=== PATIENT | female | born 1950 | race Two or more races ===

== ENCOUNTER 2017-02-19 21:16 | Inpatient (IN) | payer MEDICARE, MEDICAID ==
[~2017-02-19] VITALS: Ht 160 cm; Wt 43.1 kg
[2017-02-20] MEDS ORDERED: ATOR80TA PO (00:58)
[2017-02-20] MEDS ORDERED: DOCU100C36 PO (00:58)
[2017-02-20] MEDS ORDERED: ASPI-1169 PO (00:58)
[2017-02-20] MEDS ORDERED: MIRT15TA7 PO (00:58)
[2017-02-20 02:08] VITALS: BP 151/79
--- NOTE | 2017-02-20 02:10 | NUR ---
PAGED DR. ANDRADE FOR MED RECON. WILL ENDORSE TO NEXT SHIFT NURSE FOR FOLLOW UP.
--- NOTE | 2017-02-20 02:26 | NUR ---
ADMISSION NOTES: ADMITTED THIS 66Y/O FEMALE. PT IS ON 5150 HOLD FOR DTO, GD. DIRECT ADMIT FROM [facility]. PER HOLD PT IS BECOMING INCREASINGLY FORGETFUL AND AGITATED AT HOME. HER DAUGHTER CANNOT MANAGE HER AT HOME. UPON FACE TO FACE, PATIENT WAS AGITATED, COMBATIVE, CONFUSED, UNCOOPERATIVE. PT IS ALERT, ORIENTED X1. V/S WNL. RESPIRATION EVEN NON-LABORED, NO SOB, DENIES PAIN/DISCOMFORT AT THIS TIME. PATIENT IS AMBULATORY WITH ASSIST, UNSTEADY GAIT. BELONGINGS WERE INVENTORIED AND CHECKED FOR CONTRABAND. MRSA DONE. SKIN/BODY ASSESSMENT DONE. SKIN CLEAR AND INTACT. PATIENT IS UNDER THE CARE OF PSYCHIATRIC DR. BURNHAM AND UNDER THE MEDICAL CARE OF DR. LIAO. PSYCH DX OF PSYCHOSIS MEDICAL DX OF HTN, DEMENTIA, HEMIPARESIS RIGHT, BILATERAL HEARING/VISUAL LOSS. BED LOCKED AND PLACED ON LOWEST POSITION. SIDERAILS UPX2. CALL LIGHT WITHIN REACH. ALL NEEDS ATTENDED AND ANTICIPATED. WILL CONTINUE TO MONITOR Q 15 MINS. FOR SAFETY AND BEHAVIOR.
[2017-02-20] MEDS ORDERED: TEMAZEPAM 7.5 MG CAPSULE PO PRN (02:30)
[2017-02-20] MEDS ORDERED: MAG HYDROX/AL HYDROX/SIMETH 30 ML UDC PO PRN (02:30)
[2017-02-20] MEDS ORDERED: MAGNESIUM HYDROXIDE 30 ML UDC PO PRN (02:30)
[2017-02-20] MEDS ORDERED: LORAZEPAM 0.5 MG TABLET PO PRN (02:30)
[2017-02-20] MEDS ORDERED: ACETAMINOPHEN 325 MG TABLET PO PRN (02:30)
[2017-02-20 08:00] VITALS: BP 135/95
[2017-02-20] MEDS: DOCUSATE SODIUM 100 MG CAPSULE PO SCH ×2 (10:30→13:44)
[2017-02-20] MEDS: ASPIRIN 81 MG TAB.CHEW PO SCH ×2 (10:30→13:44)
[2017-02-20] MEDS: Z GUARD REMEDY 2 OZ OINT TP SCH (11:06)
[2017-02-20 16:20] VITALS: BP 128/58
[2017-02-20] MEDS: GABAPENTIN 100 MG CAPSULE PO SCH (17:58)
[2017-02-20] MEDS: busPIRone 5 MG TABLET PO SCH (17:58)
[2017-02-20 19:43] VITALS: BP 99/62
[2017-02-21] MEDS: GABAPENTIN 100 MG CAPSULE PO SCH ×2 (08:22→16:22)
[2017-02-21] MEDS: busPIRone 5 MG TABLET PO SCH ×2 (08:22→16:22)
[2017-02-21] MEDS: DOCUSATE SODIUM 100 MG CAPSULE PO SCH (08:22)
[2017-02-21] MEDS: ASPIRIN 81 MG TAB.CHEW PO SCH (08:22)
[2017-02-21] MEDS: Z GUARD REMEDY 2 OZ OINT TP SCH (08:22)
[2017-02-21 09:11] LABS: BASOPHILS % (AUTO) 0.6 % (0.0-2.0); EOSINOPHILS # (AUTO) 0.1 /CMM (0.0-0.7); EOSINOPHILS % (AUTO) 2.1 % (0.0-6.0); HEMATOCRIT 34 % (33-45); HEMOGLOBIN 11.8 g/dL (11.5-14.8); LYMPHOCYTES # (AUTO) 2.2 /CMM (0.8-4.8); LYMPHOCYTES % (AUTO) 42.4 % (20.0-44.0); MEAN CORPUSCULAR HEMOGLOBIN 30 PG (26.0-33.0); MEAN CORPUSCULAR HGB CONC 35 g/dl (31.0-36.0); MEAN CORPUSCULAR VOLUME 85 fL (82-100); MONOCYTES # (AUTO) 0.2 /CMM (0.1-1.30); MONOCYTES % (AUTO) 4.5 % (2.0-12.0); NEUTROPHILS # (AUTO) 2.6 /CMM (1.8-8.9); NEUTROPHILS % (AUTO) 50.4 % (43.0-81.0); PLATELET COUNT (AUTO) 323 /CMM (150-450); RDW COEFFICIENT OF VARIATION 13.6 (11.5-15.0); WHITE BLOOD COUNT (AUTO) 5.1 K/uL (4.3-11.0)
[2017-02-21 09:31] LABS: ALBUMIN 3.2 g/dL (3.4-5.0); BILIRUBIN,TOTAL 0.8 mg/dL (0.2-1.0); CALCIUM, SERUM 8.9 mg/dL (8.5-10.1); CREATININE 0.8 mg/dL (0.6-1.3); MAGNESIUM 1.9 mg/dL (1.8-2.4); PHOSPHORUS 3.4 mg/dL (2.5-4.9); POTASSIUM 3.3 mmol/L (3.5-5.1); TOTAL PROTEIN, SERUM 6.9 g/dL (6.4-8.2)
[2017-02-21 09:34] LABS: CHOLESTEROL 255 mg/dL (<200); HDL CHOLESTEROL 53 mg/dL (40-60); LDL 182 mg/dL (0-99); TRIGLYCERIDES 120 mg/dL (30-150)
[2017-02-21 09:35] VITALS: BP 121/68
[2017-02-21] MEDS ORDERED: POTASSIUM CHLORIDE 20 MEQ TAB.PRT.SR PO ONE (12:00)
[2017-02-21 16:00] VITALS: BP 155/91
[2017-02-21] MEDS: LACTOSE-FREE FOOD 237 ML LIQUID PO SCH (16:34)
[2017-02-21 19:42] VITALS: BP 127/79
[2017-02-21] MEDS: ATORVASTATIN 40 MG TABLET PO SCH (21:38)
[2017-02-22 08:00] VITALS: BP 146/76
[2017-02-22] MEDS: LACTOSE-FREE FOOD 237 ML LIQUID PO SCH ×2 (08:02→16:22)
[2017-02-22] MEDS: GABAPENTIN 100 MG CAPSULE PO SCH ×3 (09:16→16:06)
[2017-02-22] MEDS: busPIRone 5 MG TABLET PO SCH ×3 (09:16→16:06)
[2017-02-22] MEDS: ASPIRIN 81 MG TAB.CHEW PO SCH (09:16)
[2017-02-22] MEDS: DOCUSATE SODIUM 100 MG CAPSULE PO SCH (09:16)
[2017-02-22] MEDS: Z GUARD REMEDY 2 OZ OINT TP SCH (09:32)
--- NOTE | 2017-02-22 11:56 | NUR ---
Initial Discharge Note: Patient lives with daughter at [address] [place] [address] / [phone]. SW spoke with patient's daughter, Maria M Howell, , who stated that the family has been in contact with [facility] while patient was at [facility]. Maria M stated that they would like patient placed at [facility]. SW to follow up with admissions at [facility] [address], [place] [address] / fax number [phone]. SW will fax inquiry to facility. SW to follow up with MD and will facilitate safe and proper discharge.
[2017-02-22 16:24] VITALS: BP 126/72
[2017-02-22] MEDS ORDERED: POTASSIUM CHLORIDE 20 MEQ TAB.PRT.SR PO ONE (19:00)
[2017-02-22 20:13] VITALS: BP 160/77
[2017-02-22 20:44] VITALS: BP 146/85
[2017-02-22] MEDS: ATORVASTATIN 40 MG TABLET PO SCH (21:13)
[2017-02-23 08:00] VITALS: BP 136/64
[2017-02-23] MEDS: DOCUSATE SODIUM 100 MG CAPSULE PO SCH (08:19)
[2017-02-23] MEDS: ASPIRIN 81 MG TAB.CHEW PO SCH (08:19)
[2017-02-23] MEDS: busPIRone 5 MG TABLET PO SCH ×3 (08:19→16:05)
[2017-02-23] MEDS: GABAPENTIN 100 MG CAPSULE PO SCH ×3 (08:19→16:05)
[2017-02-23] MEDS: LACTOSE-FREE FOOD 237 ML LIQUID PO SCH ×2 (08:19→16:05)
[2017-02-23] MEDS: Z GUARD REMEDY 2 OZ OINT TP SCH (08:21)
--- NOTE | 2017-02-23 10:04 | NUR ---
Discharge Planning: MELISSA faxed an inquiry to Lizzy at [facility] [address], [place] [address] / fax number [phone]. Lizzy then stated that patient was accepted into the facility, as the facility has been working with family since patient was at [facility] [before being transferred to [facility]].
--- NOTE | 2017-02-23 13:03 | NUR ---
Discharge Planning: MELISSA called and left a voicemail for patient's daughter Maria M Howell, . MELISSA informed Maria M that patient was accepted to [facility] and that she was ready to discharge tomorrow. MELISSA provided her direct contact information, as well as MELISSA Garcia's information as MELISSA Souza will be out of office tomorrow.
--- NOTE | 2017-02-23 13:23 | NUR ---
Discharge Note: Patient will be discharged to [facility] [address], [place] [address] / fax number [phone], via transportation arranged by [facility]. The transportation is scheduled for 3pm on , 02/24/17. MELISSA left a voicemail for patients daughter Maria M Howell, informing her of the discharge. [facility] was the family's wish for placement when patient was at [facility] and the family also expressed this wish to MELISSA Souza when she called Maria M after assessing the patient. Patient was also aware and in agreement with this placement. At the facility, patient will be seen by change lead, Dr. [place] [address] [phone]. Patient will also be under the care of psychiatrist, Dr. Ken [address], [place] [address] [phone]. Addendum: 02/23/17 at 1329 by NISSA TORRES MELISSA received a call back from patient's daughter Maria M Howell, . Maria M stated that she was happy with the discharge and thanked
[2017-02-23 15:50] VITALS: BP 118/72
--- NOTE | 2017-02-23 19:30 | NUR ---
GPS RN NOTE, RECEIVED PATIENT AWAKE AND IN BED, NO S/S OR COMPLAINTS OF PAIN AT THIS TIME. PATIENT DISPLAYING NO S/S OF APPARENT DISTRESS AT THIS TIME. PATIENT BREATHING IS UNLABORED WITH EQUAL RISE AND FALL OF THE CHEST. PATIENT IS ALERT AND ORIENTED X 2 ON ROOM AIR WITH A SPO2 97 %. PATIENT IS MED COMPLIANT, CALM, COOPERATIVE, ISOLATIVE, AND NEEDS REORIENTATION AT TIMES. PATIENT DENIES SI AND HI AT THIS TIME. PATIENT ASSISTED WITH TURNING AND REPOSITIONING Q2HR AND PRN FOR COMFORT AND CIRCULATION. PATIENT HAS NO NEEDS AT THIS TIME. PATIENT EDUCATED ON THE USE OF THE CALL JUDD. PATIENT BED SIDE RAILS UP X 2 FOR SAFETY, BED IS LOCKED AND LOW, WILL CONTINUE TO MONITOR THIS PATIENT WITH THE HELP OF STAFF.
[2017-02-23 20:13] VITALS: BP 139/86
[2017-02-23] MEDS: ATORVASTATIN 40 MG TABLET PO SCH (21:58)
[2017-02-24 08:00] VITALS: BP 138/84
[2017-02-24] MEDS: LACTOSE-FREE FOOD 237 ML LIQUID PO SCH ×2 (08:00→17:40)
[2017-02-24] MEDS: DOCUSATE SODIUM 100 MG CAPSULE PO SCH (08:50)
[2017-02-24] MEDS: GABAPENTIN 100 MG CAPSULE PO SCH ×3 (08:50→16:18)
[2017-02-24] MEDS: ASPIRIN 81 MG TAB.CHEW PO SCH (08:50)
[2017-02-24] MEDS: busPIRone 5 MG TABLET PO SCH ×3 (08:50→16:18)
[2017-02-24] MEDS: Z GUARD REMEDY 2 OZ OINT TP SCH (08:51)
--- NOTE | 2017-02-24 09:59 | NUR ---
DR. BURNHAM GAVE AN ORDER TO D/C HOLD AND D/C TO [facility] AND TO FOLLOW UP WITH PSYCH AND MEDICAL DOCTORS. DR. BURNHAM ORDERED TO CONTINUE SAME MEDS INCLUDING PRN.
[2017-02-24 15:56] VITALS: BP 141/82
--- NOTE | 2017-02-24 18:05 | NUR ---
GPS/RN-NOTES PATIENT WAS DISCHARGE TO [facility] TODAY. DR. BURNHAM AND DR. LIAO AWARE AND AGREES OF PATIENT DISCHARGE WITH ORDERS. REPORT WAS GIVEN TO VIKTOR ( SPEECH THERAPY ASSISTANT).PATIENT DID NOT VERBALIZE SI/HI ,DENIES VISUAL/AUDITORY HALLUCINATIONS AT THE TIME OF DISCHARGE. PATIENT LEFT THE UNIT IN STABLE CONDITION WITH ALL HER BELONGINGS. SENIOR TELECOMMUNICATIONS ENGINEER BY ANAHI AVILES( FACILITY VULCANIZING MACHINE OPERATOR).PATIENT WAS ASSISTED BY ONE PROFESSOR OF ENVIRONMENTAL ENGINEERING STAFF TO THE LOBBY FOR SAFETY.PER SW NOTES PATIENT DAUGHTER ETHAN MCDERMOTT WAS AWARE OF PATIENT DISCHARGE.CALLED DAUGHTER AT [phone] SEVERAL TIME BUT THE LINE WAS BUSY.
== END 2017-02-24 18:00 | DRG 885 ==
LOC: GPS 22:48
PROVIDERS: ADMIT Psychiatry & Neurology Psychosomatic Medicine; ATTEND Psychiatry & Neurology Psychosomatic Medicine
DX: F32.3 Major depressive disorder, single episode, severe with psychotic features (principal); F02.81 Dementia in other diseases classified elsewhere, unspecified severity, with behavioral disturbance; E43 Unspecified severe protein-calorie malnutrition; F29 Unspecified psychosis not due to a substance or known physiological condition; G30.9 Alzheimer's disease, unspecified; E78.5 Hyperlipidemia, unspecified; I10 Essential (primary) hypertension; E87.6 Hypokalemia; F41.9 Anxiety disorder, unspecified; Z85.841 Personal history of malignant neoplasm of brain; Z85.820 Personal history of malignant melanoma of skin
CPT/HCPCS: 36415; 80053-TC; 80061-TC; 83735-TC; 84100-TC; 85025-TC; 97116-TC; 97530-TC